=== PATIENT | male | born 2000 | race African-American/Black ===

== ENCOUNTER 2021-11-14 23:13 | Emergency (ER) | payer OTHER ==
[~2021-11-14] VITALS: Ht 190.5 cm; Wt 81.7 kg
[2021-11-14 23:38] VITALS: BP 157/75
[2021-11-15] MEDS ORDERED: NAPROSYN500 MG PO (00:44)
== END 2021-11-15 01:23 | disposition home or self-care (01) ==
LOC: ER 23:13
DX: S60.222A Contusion of left hand, initial encounter (principal); S60.221A Contusion of right hand, initial encounter; Z88.2 Allergy status to sulfonamides; W22.09XA Striking against other stationary object, initial encounter; Y93.89 Activity, other specified; Y92.89 Other specified places as the place of occurrence of the external cause; Y99.8 Other external cause status